=== PATIENT | male | born 1995 | race African-American/Black ===

== ENCOUNTER 2025-06-25 11:26 | Emergency (ER) | payer BC ==
[~2025-06-25] VITALS: Ht 175.3 cm; Wt 65.8 kg
[2025-06-25] MEDS ORDERED: GENT5DRO4 RIGHTEYE (12:23)
[2025-06-25] MEDS ORDERED: AMOX-430 PO (12:23)
[2025-06-25 12:30] VITALS: BP 119/74; TEMP 98.4; O2SAT 99
== END 2025-06-25 12:31 | disposition home or self-care (01) ==
LOC: ER 11:26
DX: H00.011 Hordeolum externum right upper eyelid (principal)
CPT/HCPCS: A4606; A4663

== ENCOUNTER 2025-11-01 20:38 | Emergency (ER) | payer BC ==
[~2025-11-01] VITALS: Ht 175.3 cm; Wt 65.8 kg
[~2025-11-01 20:38] MED LIST: AMOX-319 PO; GENT5DRO23 RIGHTEYE
[2025-11-01] MEDS ORDERED: IBUPROFEN 600 MG TABLET ONE (21:27)
[2025-11-01] MEDS: IBUPROFEN 600 MG TABLET PO ONE (21:29)
[2025-11-01 21:59] VITALS: BP 122/75
[2025-11-01] MEDS ORDERED: CYCL10TA24 PO (22:27)
[2025-11-01] MEDS ORDERED: NAPR-1194 PO (22:27)
[2025-11-01] MEDS ORDERED: CYCLOBENZAPRINE HCL 10 MG TABLET ONE (22:32)
[2025-11-01] MEDS ORDERED: HYDROCODONE/APAP 5-325MG TABLET ONE (22:32)
[2025-11-01] MEDS: HYDROCODONE/APAP 5-325MG TABLET PO ONE (22:33)
[2025-11-01] MEDS: CYCLOBENZAPRINE HCL 10 MG TABLET PO ONE (22:33)
[2025-11-01 23:00] VITALS: BP 126/80; TEMP 97.1; O2SAT 98
== END 2025-11-01 23:01 | disposition home or self-care (01) ==
LOC: ER 20:51
DX: S46.912A Strain of unspecified muscle, fascia and tendon at shoulder and upper arm level, left arm, initial encounter (principal); S63.502A Unspecified sprain of left wrist, initial encounter; V43.52XA Car driver injured in collision with other type car in traffic accident, initial encounter; Y93.89 Activity, other specified; Y92.410 Unspecified street and highway as the place of occurrence of the external cause; Y99.9 Unspecified external cause status
CPT/HCPCS: 71045; 73020; 73100; A4606; A4663